=== PATIENT | female | born 1970 | race Caucasian/White ===

== ENCOUNTER → 2018-02-18 | Outpatient (CLI) | payer OTHER, BC ==
[~2018-02-18] MED LIST: DIPH25CA79 PO; EST.1TD TD; FAMO-119 PO; IBP600T1 PO; METH-313 PO; OXYC-12 PO; PRD20T PO; PRD50T PO
--- NOTE | 2018-02-18 11:20 | Diagnostic Imaging Report ---
INDICATION: Injury. Difficulty bearing weight. COMPARISON: None FINDINGS: 3 radiographic views of the right ankle were obtained. There is chronic appearing deformity involving the distal fibula suggestive of old avulsion fracture. There is no gross evidence of acute fracture or dislocation of the right ankle on today's exam. Osseous structures otherwise appear to be intact. Joint spaces are maintained. There may be mild lateral soft tissue swelling. No unexpected radiopaque foreign bodies are identified. IMPRESSION: 1. Probable old avulsion fracture of the distal fibula. 2. No distinct acute fracture or dislocation is seen on today's exam. Dictated by: Dictated on workstation # [id number]
== END ==
LOC: RAD 10:47
PROVIDERS: ATTEND Internal Medicine
DX: S93.401A Sprain of unspecified ligament of right ankle, initial encounter (principal)
CPT/HCPCS: 73610

== ENCOUNTER 2018-03-15 10:30 | Emergency (ER) | payer BC, OTHER ==
[~2018-03-15] VITALS: Ht 167.6 cm; Wt 77.1 kg
[~2018-03-15 10:30] MED LIST changes: -METH-313 PO; -PRD20T PO
[2018-03-15] MEDS ORDERED: METH-313 PO (11:14)
[2018-03-15] MEDS ORDERED: PRD20T PO (11:14)
[2018-03-15] MEDS ORDERED: morphine INJ 10 MG/ML 1ML (SYR OR VIAL) IJ ONE (11:15)
[2018-03-15] MEDS ORDERED: KETOROLAC 60 MG/2 ML VIAL IM ONE (11:15)
--- NOTE | 2018-03-15 11:15 | ED Back Pain ---
General Stated Complaint: LEG LEG PAIN Source of Information: Patient Exam Limitations: No Limitations History of Present Illness Date Seen by Provider: Mar 15, 2018 Time Seen by Provider: 11:09 Initial Comments To ER with reports of left leg pain. She has intermittently over the past 5 months had some left low back pain and pain in the left side of her buttock. Today, the pain became so intense that she has inability to bear weight and the pain radiates all the way down her left leg and she occasionally gets a numb sensation in her left leg. She denies any history of IV drug use, no history of fevers, no history of cancer personally, no loss of sensation to the genitals and no loss of control of bowel or bladder. No falls or trauma. Location: Lumbar Spine Timing/Duration: Getting Worse, Intermittent Severity: Moderate Associated Symptoms: numbness in legs/feet, lower back pain Allergies and Home Medications Allergies Coded Allergies: Sulfa (Sulfonamide Antibiotics) (Verified Allergy, Severe, ANAPHYLAXIS, ) Home Medications No Active Prescriptions or Reported Meds Patient Home Medication List Home Medication List Reviewed: Yes Review of Systems Constitutional: see HPI EENTM: see HPI Respiratory: no symptoms reported Cardiovascular: no symptoms reported Musculoskeletal: see HPI Skin: no symptoms reported Psychiatric/Neurological: No Symptoms Reported Past Lzcihxn-Fyungy-Hutzhb Hx Past Medical History Reproductive Disorders: No Physical Exam Vital Signs Capillary Refill : Height, Weight, BMI Height: 5'6.00" Weight: 180lbs. 0.0oz. 81.358925kr; 29.05 BMI Method: General Appearance: No Apparent Distress, WD/WN, Other (tearful) HEENT: PERRL/EOMI Neck: Full Range of Motion, Normal Inspection Respiratory: No Accessory Muscle Use, No Respiratory Distress Gastrointestinal: Normal Bowel Sounds, Non Tender, Soft Neurologic/Psychiatric: Alert, Oriented x3, No Motor/Sensory Deficits Skin: Normal Color, Warm/Dry Dorsiflex and plantar flex her left foot. Strong dorsalis pedis pulse with warm skin and normal appearance of the leg. Progress/Results/Core Measures Results/Orders My Orders Orders - HECTOR SILVER APRN Morphine Injection (Morphine Injection (03/15/18 11:15) Ketorolac Injection (Toradol Injection) (03/15/18 11:15) Departure Communication (Admissions) She has none of the red flags for low back pain so imaging is not warranted at this time Impression Primary Impression: Lumbar radiculopathy Disposition: HOME, SELF-CARE Condition: Stable Departure-Patient Inst. Decision time for Depature: 11:12 Referrals: [facility] (PCP/Family) Primary Care Physician Patient Instructions: Radiculopathy Add. Discharge Instructions: 1. Call [facility] today to make an appointment to be seen sometime this week. If pain does not improve then an MRI is warranted. Steroids and muscle relaxers as directed. It is best to stay as active as possible, do not just lay around. Scripts Methocarbamol (Robaxin-750) 750 Mg Tablet 750 MG PO Q4H PRN for PAIN-MODERATE TO SEVERE, #30 TAB Prov: HECTOR SILVER APRN 03/15/18 Prednisone (Prednisone) 20 Mg Tab 40 MG PO DAILY, #8 TAB Prov: HCETOR SILVER APRN 03/15/18 Work/School Note: Work Release Form Date Seen in the Emergency Department: Mar 15, 2018 Return to Work: Mar 17, 2018 Other Restrictions Listed Below: No lifting over 10 pounds HECTOR SILVER APRN Mar 15, 2018 11:15
--- OUTSIDE RECORDS SUMMARY | 2018-03-15 11:24 | XMS REPORT ---
Author Author MICHAEL CEDILLO Organization [facility] Address [address] [place] [address] Care Team Providers Care Plant Breeder Scientist Name Role Phone MICHAEL CEDILLO Unavailable PROBLEMS Type Condition ICD9-CM Code [id number] Code Onset Dates Condition Status SNOMED Code Problem Primary insomnia F51.01 Active 4508643 Problem Depression with anxiety F41.8 Active 661362802 Problem Abdominal pain, generalized 789.07 Active 659283042 ALLERGIES Substance Reaction Event Type Date Status Bactrim DS anaphylaxis Drug Allergy Nov, Active ENCOUNTERS Encounter Location Date Diagnosis [facility] [address] [address] Nov, Primary insomnia F51.01 [facility] [address] [address] October, Seasonal allergic rhinitis, unspecified trigger J30.2 [facility] [address] [place] [id number] [place] [address] Jun, Upper respiratory infection, viral J06.9 [facility] [address] [place] [id number] [place] [address] Jun, Influenza J11.1 [facility] [address] [address] Feb, Gastroenteritis and colitis, viral A08.4 [facility] [address] [address] Feb, Dysuria R30.0 [facility] [id number] [place] [id number] Jan, Dental examination Z01.20 [facility] [id number] [place] [address] 17 Nov, 2016 Right ankle injury, initial encounter S99.911A and High ankle sprain of right lower extremity, initial encounter S93.431A [facility] [address] [id number] October, Dental examination Z01.20 [place] [id number] [place] [address] 15 Apr, 2016 Acute non-recurrent frontal sinusitis J01.10 and Elevated blood pressure reading R03.0 [facility] [id number] [place] [address] 16 Jul, 2015 Abdominal pain, generalized 789.07 ; Family history of colon cancer Z80.0 and Depression with anxiety F41.8 [place] [id number] [place] [address] Jul, [facility] [id number] [place] [address] Jun, Skin infection L08.9 ; Sinusitis J32.9 and Tinea corporis B35.4 [facility] [facility] [id number] [place] [address] Jun, Routine adult health maintenance V70.0 [facility] [address] [place] [address] Feb, Routine adult health maintenance V70.0 and Right knee pain 719.46 [facility] [id number] [place] [address]- [address] 14 Feb, 2015 [facility] [id number] [place] [address] Dec, Right knee pain 719.46 [facility] [id number] [place] [address] 14 Sep, 2014 [facility] [id number] [place] [address] Sep, [facility] [place] [facility] [address] [id number] [place] [address] Jan, [facility] [place] [facility] [address] [id number] [place] [address] Jan, [facility] [place] [facility] [address] [id number] [place] [address] Nov, [facility] [place] [facility] [address] [id number] [place] [address] Nov, [facility] [place] [facility] [address] [id number] [place] [address] October, [facility] [place] [facility] [address] [id number] [place] [address] October, [facility] [place] [facility] [address] [id number] [place] [address] Sep, [facility] [place] [facility] [address] [id number] [place] [address] Sep, [facility] [place] [facility] [address] [id number] [place] [address] Jun, [facility] [place] [facility] [address] [id number] [place] [address] Jun, [facility] [place] [facility] [address] [id number] [place] [address] Jun, [facility] [place] [facility] [address] [id number], [place] [address] Feb, [facility] [place] [facility] [address] [id number] [place] [address] Sep, [facility] [place] [facility] [address] [id number] [place] [address] Mar, [facility] [place] [facility] [address] [id number] [place] [address] Mar, [facility] [place] [facility] [id number] [address] October, [facility] [address], [place] [address] Jun, [facility] [address], [place] [address] Jun, [facility] [address] [address] Jun, [facility] [address], [place] [address] Apr, [facility] [id number] [place] [address] Apr, [facility] [address] [place] [address]- [address] Apr, [facility] [id number] [place] [address]- [address] Apr, [facility] [address], [place] [address] Nov, [facility] [address] [address] Apr, IMMUNIZATIONS No Known Immunizations SOCIAL HISTORY Never Assessed REASON FOR VISIT headache, having problems falling sleep x last few years , patient state she is having a lot stress and would like something to help her sleep at night -- nicanor brar PLAN OF CARE Activity Details Follow Up 4 Weeks or prn Reason:insomnia VITAL SIGNS Height 66 in 2017-11-18 Weight 185.0 lbs 2017-11-18 Temperature 98.0 degrees Fahrenheit 2017-11-18 Heart Rate 76 bpm 2017-11-18 Respiratory Rate 18 2017-11-18 BMI 29.86 kg/m2 2017-11-18 Blood pressure systolic 126 mmHg 2017-11-18 Blood pressure diastolic 78 mmHg 2017-11-18 MEDICATIONS Medication Instructions Dosage Frequency Start Date End Date Duration Status Fluticasone Propionate 50 MCG/ACT Nasally Once a day 1 spray in each nostril 24h Jun, 30 day(s) Active Lunesta 1 MG Orally at bedtime as needed 1 tablet Nov, 28 days Active RESULTS No Results PROCEDURES No Known procedures INSTRUCTIONS MEDICATIONS ADMINISTERED No Known Medications MEDICAL (GENERAL) HISTORY Type Description Date Surgical History hysterectomy 01/2011 Surgical History tubal ligation 1999 Hospitalization History Surgery(s) only
--- OUTSIDE RECORDS SUMMARY | 2018-03-15 11:25 | XMS REPORT ---
Author Author MONICA ARISTEO Organization [facility] Address [address] [place] [address] Care Team Providers Care Multicraft Operator Name Role Phone ANDERSONARISTEO Solitario Unavailable PROBLEMS Type Condition ICD9-CM Code VMH07-SP Code Onset Dates Condition Status SNOMED Code Problem Primary insomnia F51.01 Active 9889347 Problem Depression with anxiety F41.8 Active 856124251 Problem Abdominal pain, generalized 789.07 Active 135377147 ALLERGIES Substance Reaction Event Type Date Status Bactrim DS anaphylaxis Drug Allergy Jun, Active ENCOUNTERS Encounter Location Date Diagnosis [facility] [address] [address] Nov, Primary insomnia F51.01 [facility] [address] [address] October, Seasonal allergic rhinitis, unspecified trigger J30.2 [facility] [address] [address] Jun, Upper respiratory infection, viral J06.9 [facility] [address] [place] [address] Jun, Influenza J11.1 [facility] [address] [address] Feb, Gastroenteritis and colitis, viral A08.4 [facility] [address] [address] Feb, Dysuria R30.0 [facility] [address] [id number] Jan, Dental examination Z01.20 [facility] [address] [place] [address] Nov, Right ankle injury, initial encounter S99.911A and High ankle sprain of right lower extremity, initial encounter S93.431A [facility] [address] [id number] October, Dental examination Z01.20 [facility] [id number] [place] [address] Apr, Acute non-recurrent frontal sinusitis J01.10 and Elevated blood pressure reading R03.0 [facility] [id number] [place] [address] 16 Jul, 2015 Abdominal pain, generalized 789.07 ; Family history of colon cancer Z80.0 and Depression with anxiety F41.8 [place] [id number] [place] [address] Jul, [facility] [id number] [place] [address] Jun, Skin infection L08.9 ; Sinusitis J32.9 and Tinea corporis B35.4 [place] [id number] [place] [address]- [address] Jun, Routine adult health maintenance V70.0 [place] [address] [place] [address]- [address] 24 Feb, 2015 Routine adult health maintenance V70.0 and Right knee pain 719.46 [facility] [address] [place] [address]- 58[address] 14 Feb, 2015 [facility] [id number] [place] [address]- [address] Dec, Right knee pain 719.46 [facility] [id number] [place] [address]- 6[address] Sep, [facility] [id number] [place] [address]- [address] Sep, [facility] [place] [facility] [address] [id number] [place] [address] Jan, [facility] [place] [facility] [address] [id number] [place] [address]- [address] Jan, [facility] [place] [facility] [address] [id number] [place] [address] Nov, [facility] [place] [facility] [address] [id number] [place] [address]- 6703 Nov, [facility] [place] [facility] [address] [id number] [place] [address] October, [facility] [place] [facility] [address] [id number] [place] [address] 4[address] October, [facility] [place] [facility] [address] [id number] [place] [address]- 135[address] Sep, [facility] [place] [facility] [address] [id number] [place] [address]- 8[address] Sep, [facility] [place] [facility] [address] [id number] [place] [address]- [address] Jun, [facility] [place] [facility] [address] [id number] [place] [address]- 0[address] Jun, [facility] [place] [facility] [address] [id number] [place] [address]- [address] Jun, [facility] [place] [facility] [address] [id number], [place] [address] Feb, [facility] [place] [facility] [address] [id number] [place] [address]- 39[address] Sep, [facility] [place] [facility] [address] [id number] [place] [address]- 16[address] Mar, [facility] [place] [facility] [address] [id number], [place] [address] Mar, [facility] [place] [facility] [address] [id number], [place] [address] October, [facility] [address], [place] [address] Jun, [facility] [address], [place] [address] Jun, [facility] [address] Jun, [facility] [id number] [place] [address] 142055- 8618 Apr, [facility] [id number] [place] [address]- [address]500 Apr, [facility] [id number] [place] [address] 99523- 5422 Apr, [facility] [id number] [place] [address] 46[address]- 1637 Apr, [facility] [id number] [place] [address] 16[address]- 3363 Nov, [facility] [address] [place] [address]- 9586 Apr, IMMUNIZATIONS No Known Immunizations SOCIAL HISTORY Never Assessed REASON FOR VISIT Cough--tjanssenMA, --thursday at Walk-In she was told she had the flu, no testing done. Grandson had the flu. , --cough has got worse which is producing yellowish phlegm making her chest hurt. She cannot sleep. , --needs work release to go back to work. PLAN OF CARE Activity Details Follow Up prn Reason: VITAL SIGNS Height 66 in 2017-07-06 Weight 186.8 lbs 2017-07-06 Temperature 98.2 degrees Fahrenheit 2017-07-06 Heart Rate 90 bpm 2017-07-06 Respiratory Rate 20 2017-07-06 BMI 30.15 kg/m2 2017-07-06 Blood pressure systolic 120 mmHg 2017-07-06 Blood pressure diastolic 82 mmHg 2017-07-06 MEDICATIONS Medication Instructions Dosage Frequency Start Date End Date Duration Status Cetirizine HCl 10 mg Orally Once a day 1 tablet 24h Jun, Sep, 90 days Active Theraflu Multi Symptom 25 MG Not-Taking Tessalon Perles 100 mg Orally Three times a day 1 capsule as needed 8h Jun, Jul, 14 days Active Fluticasone Propionate 50 MCG/ACT Nasally Once a day 1 spray in each nostril 24h Jun, 30 day(s) Active Paroxetine HCl 20 MG Orally Once a day 1 tablet in the morning 24h Jul, Not-Taking Oxycodone HCl Not-Taking Clotrimazole 1 % Externally Twice a day 1 application to affected area 12h Jun, Not-Taking Ibuprofen 200 MG Orally every 6 hrs 1 tablet with food or milk as needed 6h Not-Taking Amoxicillin Not-Taking RESULTS No Results PROCEDURES No Known procedures INSTRUCTIONS MEDICATIONS ADMINISTERED No Known Medications MEDICAL (GENERAL) HISTORY Type Description Date Surgical History hysterectomy 01/2011 Surgical History tubal ligation 1999 Hospitalization History Surgery(s) only
--- OUTSIDE RECORDS SUMMARY | 2018-03-15 11:25 | XMS REPORT ---
Author Author MONICA ARISTEO Organization [facility] Address [address] [place] [address] Care Team Providers Care Director Community Organization Name Role Phone MONICAISRAARISTEO Unavailable PROBLEMS Type Condition ICD9-CM Code MOS04-SN Code Onset Dates Condition Status SNOMED Code Problem Depression with anxiety F41.8 Active 330164445 Problem Abdominal pain, generalized 789.07 Active 561317235 ALLERGIES Substance Reaction Event Type Date Status Bactrim DS anaphylaxis Drug Allergy Nov, Active ENCOUNTERS Encounter Location Date Diagnosis [facility] [address] [address] Jun, Upper respiratory infection, viral J06.9 [facility] [address] [address] Jun, Influenza J11.1 [facility] [address] [address] Feb, Gastroenteritis and colitis, viral A08.4 [facility] [address] [place] [address]97 Feb, Dysuria R30.0 [facility] [address] [id number] Jan, Dental examination Z01.20 [facility] [id number] [place] [address] Nov, Right ankle injury, initial encounter S99.911A and High ankle sprain of right lower extremity, initial encounter S93.431A [facility] [id number] [place] [id number] October, Dental examination Z01.20 [facility] [id number] [place] [address] Apr, Acute non-recurrent frontal sinusitis J01.10 and Elevated blood pressure reading R03.0 [facility] [id number] [place] [address]8527- 7014 16 Jul, 2015 Abdominal pain, generalized 789.07 ; Family history of colon cancer Z80.0 and Depression with anxiety F41.8 [facility] [id number] [place] [address] 30100- 2813 Jul, [facility] [id number] [place] [address] 47267- 2002 Jun, Skin infection L08.9 ; Sinusitis J32.9 and Tinea corporis B35.4 [place] [id number] [place] [address] 08386- 6003 Jun, Routine adult health maintenance V70.0 [facility] [id number] [place] [address] 80059- 2879 Feb, Routine adult health maintenance V70.0 and Right knee pain 719.46 [facility] [id number] [place] [address] 28784- 5740 Feb, [facility] [id number] [place] [address] 35427- 1788 Dec, Right knee pain 719.46 [facility] [id number] [place] [address] 33616- 0002 Sep, [facility] [id number] [place] [address] 78740- 1149 Sep, [facility] [id number] [place] [address] 51809- 1254 Jan, [facility] [id number] [place] [address] 30137- 3572 Jan, [facility] [id number] [place] [address] 83871- 8885 Nov, [facility] [place] [facility] [address] [id number] [place] [address]- 8916 Nov, [facility] [place] [facility] [address] [id number] [place] [address] 3118 October, [facility] [place] [facility] [address] [id number] [place] [address]- 0672 October, [facility] [place] [facility] [address] [id number] [place] [address]- 0378 Sep, [facility] [place] [facility] [address] [id number] [place] [address]- 8121 Sep, [facility] [place] [facility] [address] [id number] [place] [address]- 2583 Jun, [facility] [place] [facility] [address] [id number] [place] [address]- 0438 Jun, [facility] [place] [facility] [address] [id number] [place] [address]- 3019 Jun, [facility] [place] [facility] [address] [id number] [place] [address]- 5859 Feb, [facility] [place] [facility] [address] [id number] [place] [address]- 4452 Sep, [facility] [place] [facility] [address] [id number] [place] [address]- 7853 Mar, [facility] [place] [facility] [address] [id number] [address] 95[address] Mar, [facility] [place] [facility] [address] [id number] [place] [address]- 4535 October, [facility] [place] [facility] [address] [id number] [place] [address]- 6616 Jun, [facility] [place] [facility] [address] [id number] [place] [address]- 7089 Jun, [facility] [place] [facility] [address] [facility] [id number] [place] [address]- 12[address] Jun, [facility] [address] [id number] [address] 79[address] Apr, [facility] [address] [id number] [address] 9248 Apr, [facility] [address] [id number] [address] 6449 Apr, [facility] [address] [id number] [address] 1679 Apr, [facility] [address] [id number] [address] 65[address] Nov, [facility] [address] [id number], [place] [address] 8989 Apr, IMMUNIZATIONS No Known Immunizations SOCIAL HISTORY Never Assessed REASON FOR VISIT hurt ankle- twisted at work yesterday JStrasserRN PLAN OF CARE Activity Details Follow Up prn Reason: VITAL SIGNS Height 66 in 2016-11-29 Weight 193 lbs 2016-11-29 Temperature 97.6 degrees Fahrenheit 2016-11-29 Heart Rate 80 bpm 2016-11-29 Respiratory Rate 18 2016-11-29 BMI 31.15 kg/m2 2016-11-29 Blood pressure systolic 122 mmHg 2016-11-29 Blood pressure diastolic 74 mmHg 2016-11-29 MEDICATIONS Medication Instructions Dosage Frequency Start Date End Date Duration Status Ibuprofen 200 MG Orally every 6 hrs 1 tablet with food or milk as needed 6h Active RESULTS Name Result Date Reference Range Xray : Ankle, Right 3 views (IN HOUSE) 2016-11-29 PROCEDURES Procedure Date Ordered Result Body Site X-RAY EXAM OF ANKLE November 29, 2016 INSTRUCTIONS MEDICATIONS ADMINISTERED No Known Medications MEDICAL (GENERAL) HISTORY Type Description Date Surgical History hysterectomy 01/2011 Surgical History tubal ligation 1999 Hospitalization History Surgery(s) only
--- OUTSIDE RECORDS SUMMARY | 2018-03-15 11:25 | XMS REPORT ---
Author Author MICHAEL CEDILLO Organization [employer] Address Unknown Phone Unavailable Care Team Providers Care Motion Picture Camera Operator Name Role Phone MICHAEL CEDILLO CP Unavailable Allergies No Known Allergies Problems Problem Type Condition Code Onset Dates Condition Status Problem Abdominal pain, unspecified site 789.00 Active Problem Disturbance of skin sensation 782.0 Active Problem Headache 784.0 Active Problem Right knee pain 719.46 Active Problem Family history of diabetes mellitus V18.0 Active Problem Routine adult health maintenance V70.0 Active Problem Other malaise and fatigue 780.79 Active Problem Abdominal pain, generalized 789.07 Active Problem Polyuria 788.42 Active Problem Palpitations 785.1 Active Problem Diarrhea 787.91 Active Problem Nausea with vomiting 787.01 Active Problem Insomnia, unspecified 780.52 Active Problem Unspecified menopausal and postmenopausal disorder 627.9 Active Problem Migraine without aura, without mention of intractable migraine without mention of status migrainosus 346.10 Active Problem Carpal tunnel syndrome 354.0 Active Problem Sprain and strain of tibiofibular (ligament) 845.03 Active Problem Nausea alone 787.02 Active Problem Intestinal infection due to other organism, NEC 008.8 Active Problem Hematuria, unspecified 599.70 Active Medications No Known Medications Results No Known Results Summary Purpose [employer] Submission
--- OUTSIDE RECORDS SUMMARY | 2018-03-15 11:25 | XMS REPORT ---
Author Author ANNETTA LANGLEY Organization [facility] Address [address] [place] [address] Care Team Providers Care Sleeve Sewer Name Role Phone ANNETTA LANGLEY Unavailable PROBLEMS Type Condition ICD9-CM Code XBY85-QF Code Onset Dates Condition Status SNOMED Code Problem Depression with anxiety F41.8 Active 341111167 Problem Abdominal pain, generalized 789.07 Active 753942039 ALLERGIES Substance Reaction Event Type Date Status Bactrim DS anaphylaxis Drug Allergy Feb, Active ENCOUNTERS Encounter Location Date Diagnosis [facility] [address] [address] October, Seasonal allergic rhinitis, unspecified trigger J30.2 [facility] [id number] [place] [address]162- 7914 Jun, Upper respiratory infection, viral J06.9 [facility] [address] [address] Jun, Influenza J11.1 [facility] [address] [address] Feb, Gastroenteritis and colitis, viral A08.4 [facility] [address] [address] Feb, Dysuria R30.0 [facility] [address] [id number] Jan, Dental examination Z01.20 [facility] [address] [address] 17 Nov, 2016 Right ankle injury, initial encounter S99.911A and High ankle sprain of right lower extremity, initial encounter S93.431A [facility] [address] [id number] [id number] October, Dental examination Z01.20 [place] [id number] [place] [address]15- 3851 Apr, Acute non-recurrent frontal sinusitis J01.10 and Elevated blood pressure reading R03.0 [place] [id number] [place] [address] 36058- 3698 16 Jul, 2015 Abdominal pain, generalized 789.07 ; Family history of colon cancer Z80.0 and Depression with anxiety F41.8 [place] [id number] [place] [address] 67788- 1049 Jul, [facility] [id number] [place] [address] 08970- 0264 Jun, Skin infection L08.9 ; Sinusitis J32.9 and Tinea corporis B35.4 [place] [id number] [place] [address] 34636- 7600 Jun, Routine adult health maintenance V70.0 [place] [id number] [place] [address] 55498- 7680 24 Feb, 2015 Routine adult health maintenance V70.0 and Right knee pain 719.46 [facility] [id number] [place] [address] 48189- 1182 Feb, [facility] [id number] [place] [address] 99606- 3946 Dec, Right knee pain 719.46 [facility] [id number] [place] [address] 06917- 6661 Sep, [facility] [id number] [place] [address] 82293- 4609 Sep, [facility] [id number] [place] [address] 80462- 0583 Jan, [facility] [address] [place] [address]- 6229 Jan, [facility] [place] [facility] [address] [id number] [place] [address]- 2028 Nov, [facility] [place] [facility] [address] [id number] [place] [address]- 0903 Nov, [facility] [place] [facility] [address] [id number] [place] [address]- 4677 October, [facility] [place] [facility] [address] [id number] [place] [address]- 3741 October, [facility] [place] [facility] [address] [id number] [place] [address]- 5373 Sep, [facility] [place] [facility] [address] [id number] [place] [address]- 8334 Sep, [facility] [place] [facility] [address] [id number] [place] [address]- 6397 Jun, [facility] [place] [facility] [address] [id number] [place] [address]- 8499 Jun, [facility] [place] [facility] [address] [id number] [place] [address]- 2136 Jun, [facility] [place] [facility] [address] [id number] [place] [address]- 6469 Feb, [facility] [place] [facility] [address] [id number] [place] [address]- 0690 Sep, [facility] [place] [facility] [address] [id number] [place] [address]- 7770 Mar, [facility] [place] [facility] [address] [id number] [place] [address]- 4956 Mar, [facility] [place] [facility] [address] [id number] [place] [address] [address] October, [facility] [place] [facility] [address] [id number] [place] [address]- 6649 Jun, [facility] [address] [id number] [address]- 9410 Jun, [facility] [address] [address]- 0673 Jun, [facility] [address] [address]- 7145 Apr, [facility] [id number] [place] [address] 754965- 9096 Apr, [facility] [id number] [place] [address] 542077- 9993 Apr, [facility] [id number] [place] [address] 687733- 0658 Apr, [facility] [address] [place] [address] 90509- 4076 Nov, [facility] [address] [address]- 4[address] Apr, IMMUNIZATIONS No Known Immunizations SOCIAL HISTORY Never Assessed REASON FOR VISIT Urinary frequency, burning with urination started a couple weeks ago JStraWilliams PLAN OF CARE Activity Details Follow Up prn Reason: VITAL SIGNS Height 66 in 2017-03-03 Weight 193.8 lbs 2017-03-03 Temperature 97.9 degrees Fahrenheit 2017-03-03 Heart Rate 88 bpm 2017-03-03 Respiratory Rate 18 2017-03-03 BMI 31.28 kg/m2 2017-03-03 Blood pressure systolic 132 mmHg 2017-03-03 Blood pressure diastolic 80 mmHg 2017-03-03 MEDICATIONS No Known Medications RESULTS Name Result Date Reference Range UA LONG DIP (IN HOUSE) 2017-03-03 Lot # [id number] Exp date 2018-02-12 Clarity clear Color yellow Odor none GLU negative NEERAJ negative KET negative SG >=1.030 BLO negative pH 6.0 Protein negative URO 0.2 NIT negative MARIE negative Lot # [id number] Exp date September 2017 PROCEDURES Procedure Date Ordered Result Body Site URINALYSIS, AUTO, W/O SCOPE Mar 03, 2017 INSTRUCTIONS MEDICATIONS ADMINISTERED No Known Medications MEDICAL (GENERAL) HISTORY Type Description Date Surgical History hysterectomy 01/2011 Surgical History tubal ligation 2000 Hospitalization History Surgery(s) only
--- OUTSIDE RECORDS SUMMARY | 2018-03-15 11:25 | XMS REPORT ---
Author Author ALEX KHALIL [facility] Address [address] [place] [address] Care Team Providers Care Retail Supervisor Name Role Phone ALEX KHALIL Unavailable PROBLEMS Type Condition ICD9-CM Code ROT33-OR Code Onset Dates Condition Status SNOMED Code Problem Primary insomnia F51.01 Active 8490927 Problem Depression with anxiety F41.8 Active 265380471 Problem Abdominal pain, generalized 789.07 Active 128394771 ALLERGIES Substance Reaction Event Type Date Status Bactrim DS anaphylaxis Drug Allergy October, Active ENCOUNTERS Encounter Location Date Diagnosis [facility] [address] [address] Nov, Primary insomnia F51.01 [facility] [address] [address] October, Seasonal allergic rhinitis, unspecified trigger J30.2 [facility] [address] [address]- [address] Jun, Upper respiratory infection, viral J06.9 [facility] [address] [place] [address]34 -1017 Jun, Influenza J11.1 [facility] [address] [address] Feb, Gastroenteritis and colitis, viral A08.4 [facility] [address] [place] [address] -[address]003 Feb, Dysuria R30.0 [facility] [address] [id number] Jan, Dental examination Z01.20 [facility] [address], [place] [address] 17 Nov, 2016 Right ankle injury, initial encounter S99.911A and High ankle sprain of right lower extremity, initial encounter S93.431A [facility] [address] [id number] October, Dental examination Z01.20 [facility] [id number] [place] [address] 22973- 2382 Apr, Acute non-recurrent frontal sinusitis J01.10 and Elevated blood pressure reading R03.0 [facility] [id number] [place] [address] 24775- 7847 16 Jul, 2015 Abdominal pain, generalized 789.07 ; Family history of colon cancer Z80.0 and Depression with anxiety F41.8 [facility] [id number] [place] [address] 77805- 7552 Jul, [facility] [id number] [place] [address] 96642- 1198 Jun, Skin infection L08.9 ; Sinusitis J32.9 and Tinea corporis B35.4 [place] [id number] [place] [address] 34402- 2221 08 Jun, 2015 Routine adult health maintenance V70.0 [facility] [address] [place] [address] 50010- 4867 24 Feb, 2015 Routine adult health maintenance V70.0 and Right knee pain 719.46 [facility] [address] [place] [address] 56513- 2017 Feb, [facility] [id number] [place] [address] 61284- 6389 Dec, Right knee pain 719.46 [facility] [id number] [place] [address] 17678- 3052 Sep, [facility] [id number] [place] [address] 08105- 7456 Sep, [facility] [place] [facility] [address] [id number] [place] [address]- 3711 Jan, [facility] [place] [facility] [address] [id number] [place] [address]- 6822 Jan, [facility] [place] [facility] [address] [id number] [place] [address]- 1815 Nov, [facility] [place] [facility] [address] [id number] [place] [address]- 4173 Nov, [facility] [place] [facility] [address] [id number] [place] [address]- 2109 October, [facility] [place] [facility] [address] [id number] [place] [address]- 9614 October, [facility] [place] [facility] [address] [id number] [place] [address]- 9968 Sep, [facility] [place] [facility] [address] [id number] [place] [address]- 3979 Sep, [facility] [place] [facility] [address] [id number] [place] [address]- 4972 Jun, [facility] [place] [facility] [address] [id number] [place] [address]- 9384 Jun, [facility] [place] [facility] [address] [id number] [place] [address]- 0229 Jun, [facility] [place] [facility] [address] [id number] [place] [address]- 2212 Feb, [facility] [place] [facility] [address] [id number] [place] [address]- 1517 Sep, [facility] [place] [facility] [address] [id number] [place] [address]- 5156 Mar, [facility] [place] [facility] [address] [id number] [place] [address]- 1765 Mar, [facility] [place] [facility] [id number] [address] 89[address] October, [facility] [address], [place] [address]- 0439 Jun, [facility] [address], [place] [address]- 8484 Jun, [facility] [address], [place] [address]- 4303 Jun, [facility] [address], [place] [address]- 6817 Apr, [facility] [id number] [place] [address] 80698- 0969 Apr, [facility] [id number], [place] [address]- 0029 Apr, [facility] [address], [place] [address]- 6648 Apr, [facility] [address], [place] [address]- 6163 Nov, [facility] [address], [place] [address]- 9330 Apr, IMMUNIZATIONS No Known Immunizations SOCIAL HISTORY Never Assessed REASON FOR VISIT Sneezing, runny nose, headache, scratchy throat, cough started Thurs JStrasserRN PLAN OF CARE Activity Details Follow Up prn Reason: VITAL SIGNS Height 66 in 2017-10-13 Weight 184.6 lbs 2017-10-13 Temperature 99.0 degrees Fahrenheit 2017-10-13 Heart Rate 80 bpm 2017-10-13 Respiratory Rate 20 2017-10-13 BMI 29.79 kg/m2 2017-10-13 Blood pressure systolic 140 mmHg 2017-10-13 Blood pressure diastolic 98 mmHg 2017-10-13 MEDICATIONS Medication Instructions Dosage Frequency Start Date End Date Duration Status Fluticasone Propionate 50 MCG/ACT Nasally Once a day 1 spray in each nostril 24h Jun, 30 day(s) Active Benadryl Allergy 25 MG Orally every 8 hrs 1 tablet as needed 8h Active Theraflu Multi Symptom 25 MG Not-Taking Amoxicillin Not-Taking Paroxetine HCl 20 MG Orally Once a day 1 tablet in the morning 24h 16 Jul, 2015 Not-Taking Clotrimazole 1 % Externally Twice a day 1 application to affected area 12h 28 Jun, 2015 Not-Taking Ibuprofen 200 MG Orally every 6 hrs 1 tablet with food or milk as needed 6h Not-Taking Oxycodone HCl Not-Taking RESULTS No Results PROCEDURES No Known procedures INSTRUCTIONS MEDICATIONS ADMINISTERED No Known Medications MEDICAL (GENERAL) HISTORY Type Description Date Surgical History hysterectomy 01/2011 Surgical History tubal ligation 1999 Hospitalization History Surgery(s) only
--- OUTSIDE RECORDS SUMMARY | 2018-03-15 11:25 | XMS REPORT ---
Author Author LISA ROLAND Organization [facility] Address [address] [place] [address] Care Team Providers Care Process Controls Technician Name Role Phone LISA ROLAND Unavailable PROBLEMS Type Condition ICD9-CM Code PQX88-AO Code Onset Dates Condition Status SNOMED Code Problem Primary insomnia F51.01 Active 4752381 Problem Depression with anxiety F41.8 Active 724980158 Problem Abdominal pain, generalized 789.07 Active 690486022 ALLERGIES Substance Reaction Event Type Date Status Bactrim DS anaphylaxis Drug Allergy Jun, Active ENCOUNTERS Encounter Location Date Diagnosis [facility] [address] [address] Nov, Primary insomnia F51.01 [facility] [address] [address] October, Seasonal allergic rhinitis, unspecified trigger J30.2 [facility] [address] [address] Jun, Upper respiratory infection, viral J06.9 [facility] [address] [address] Jun, Influenza J11.1 [facility] [address] [address] Feb, Gastroenteritis and colitis, viral A08.4 [facility] [address] [address] Feb, Dysuria R30.0 [facility] [address] [id number] Jan, Dental examination Z01.20 [facility] [address] [place] [address] Nov, Right ankle injury, initial encounter S99.911A and High ankle sprain of right lower extremity, initial encounter S93.431A [facility] [address] [id number] October, Dental examination Z01.20 [facility] [id number] [place] [address] Apr, Acute non-recurrent frontal sinusitis J01.10 and Elevated blood pressure reading R03.0 [facility] [id number] [place] [address] 16 Jul, 2015 Abdominal pain, generalized 789.07 ; Family history of colon cancer Z80.0 and Depression with anxiety F41.8 [place] [address] [place] [address] Jul, [facility] [id number] [place] [address] Jun, Skin infection L08.9 ; Sinusitis J32.9 and Tinea corporis B35.4 [place] [id number] [place] [address] Jun, Routine adult health maintenance V70.0 [place] [id number] [place] [address] 24 Feb, 2015 Routine adult health maintenance V70.0 and Right knee pain 719.46 [facility] [address] [place] [address] 14 Feb, 2015 [facility] [id number] [place] [address] Dec, Right knee pain 719.46 [facility] [address] [place] [address] Sep, [facility] [id number] [place] [address] Sep, [facility] [place] [facility] [address] [id number] [place] [address] Jan, [facility] [place] [facility] [address] [id number] [place] [address] Jan, [facility] [place] [facility] [address] [id number] [place] [address] Nov, [facility] [place] [facility] [address] [id number] [place] [address] Nov, [facility] [place] [facility] [address] [id number] [place] [address] October, [facility] [place] [facility] [address] [id number] [place] [address] October, [facility] [place] [facility] [address] [id number] [place] [address] Sep, [facility] [place] [facility] [address] [id number] [place] [address] Sep, [facility] [place] [facility] [address] [id number] [place] [address] Jun, [facility] [place] [facility] [address] [id number] [place] [address] Jun, [facility] [place] [facility] [address] [id number] [place] [address] Jun, [facility] [place] [facility] [address] [id number] [address] Feb, [facility] [place] [facility] [address] [id number] [place] [address] Sep, [facility] [place] [facility] [address] [id number] [place] [address] Mar, [facility] [place] [facility] [address] [id number] [place] [address] Mar, [facility] [place] [facility] [address] [id number] [address] October, [facility] [address] [address] Jun, [facility] [address] [address] Jun, [facility] [address] [address] Jun, [facility] [address] [place] [address] Apr, [facility] [address] [place] [address] Apr, [facility] [address] [place] [address] Apr, [facility] [address] [address] Apr, [facility] [address] [address] Nov, [facility] [address] [address] Apr, IMMUNIZATIONS No Known Immunizations SOCIAL HISTORY Never Assessed REASON FOR VISIT Cough, body aches, chills, headache started Fri Justyna Burgos has Influenza A PLAN OF CARE Activity Details Follow Up prn Reason: VITAL SIGNS Height 66 in 2017-07-03 Weight 191.4 lbs 2017-07-03 Temperature 97.9 degrees Fahrenheit 2017-07-03 Heart Rate 88 bpm 2017-07-03 Respiratory Rate 20 2017-07-03 BMI 30.89 kg/m2 2017-07-03 Blood pressure systolic 130 mmHg 2017-07-03 Blood pressure diastolic 82 mmHg 2017-07-03 MEDICATIONS Medication Instructions Dosage Frequency Start Date End Date Duration Status Theraflu Multi Symptom 25 MG Active Paroxetine HCl 20 MG Orally Once a day 1 tablet in the morning 24h Jul, Not-Taking Amoxicillin Not-Taking Ibuprofen 200 MG Orally every 6 hrs 1 tablet with food or milk as needed 6h Not-Taking Oxycodone HCl Not-Taking Clotrimazole 1 % Externally Twice a day 1 application to affected area 12h 28 Jun, 2015 Not-Taking RESULTS No Results PROCEDURES No Known procedures INSTRUCTIONS MEDICATIONS ADMINISTERED No Known Medications MEDICAL (GENERAL) HISTORY Type Description Date Surgical History hysterectomy 01/2011 Surgical History tubal ligation 1999 Hospitalization History Surgery(s) only
--- OUTSIDE RECORDS SUMMARY | 2018-03-15 11:25 | XMS REPORT ---
Author Author ANDERSONARISTEO Solitario Organization [facility] Address [address] [place] [address] Care Team Providers Care Boiler Coverer Helper Name Role Phone ANDERSONARISTEO Solitario Unavailable PROBLEMS Type Condition ICD9-CM Code IJS94-SN Code Onset Dates Condition Status SNOMED Code Problem Depression with anxiety F41.8 Active 560464805 Problem Abdominal pain, generalized 789.07 Active 902662155 Assessment Acute non-recurrent frontal sinusitis J01.10 Apr, Active 45470501 Assessment Elevated blood pressure reading R03.0 Apr, Active 06718015 ALLERGIES Substance Reaction Event Type Date Status Bactrim DS anaphylaxis Drug Allergy Apr, Active SOCIAL HISTORY No smoking Hx information available PLAN OF CARE VITAL SIGNS Height 66 in 2016-04-29 Weight 194 lbs 2016-04-29 Heart Rate 70 bpm 2016-04-29 Respiratory Rate 16 2016-04-29 BMI 31.31 kg/m2 2016-04-29 Blood pressure systolic 144 mmHg 2016-04-29 Blood pressure diastolic 90 mmHg 2016-04-29 MEDICATIONS Medication Instructions Dosage Frequency Start Date End Date Duration Status Azithromycin 250 MG Orally Once a day 2 tablets on the first day, then 1 tablet daily for 4 days 24h Apr, Apr, 5 day(s) Active RESULTS No Results PROCEDURES Procedure Date Ordered Related Diagnosis Body Site Office Visit, Est Pt., Level 3 Apr 29, 2016 IMMUNIZATIONS No Known Immunizations
--- OUTSIDE RECORDS SUMMARY | 2018-03-15 11:25 | XMS REPORT ---
Author Author AARON ANGUIANO [facility] e[employer] Address Unknown Phone Unavailable Care Team Providers Care Delivery Department Supervisor Name Role Phone AARON ANGUIANO CP Unavailable Allergies No Known Allergies Problems Problem Type Condition Code Onset Dates Condition Status Problem Abdominal pain, unspecified site 789.00 Active Problem Disturbance of skin sensation 782.0 Active Problem Headache 784.0 Active Problem Right knee pain 719.46 Active Assessment Routine adult health maintenance V70.0 Active Problem Family history of diabetes mellitus [...] unspecified 599.70 Active Medications No Known Medications Procedures Procedure Coding System Code Date COMPLETE CBC W/AUTO DIFF WBC CPT-4 70675 Jun 22, 2015 LIPID PANEL CPT-4 19531 Jun 22, 2015 ASSAY THYROID STIM HORMONE CPT-4 99512 Jun 22, 2015 VENIPUNCT, ROUTINE* CPT-4 09515 Jun 22, 2015 COMPREHEN METABOLIC PANEL CPT-4 41680 Jun 22, 2015 Results Name Result Date Reference Range Unit Abnormality Flag ROUTINE VENIPUNCTURE Summary Purpose eClinicalWorks Submission
--- OUTSIDE RECORDS SUMMARY | 2018-03-15 11:26 | XMS REPORT | Continuity of Care Document ---
Author Author [facility] Address Unknown Phone Unavailable Allergies Active Description Code Type Severity Reaction Onset Reported/Identified Relationship to Patient Clinical Status Yes No Known Drug Allergies [id number] Drug Allergy Unknown N/A 01/14/2011 Yes Sulfa (Sulfonamide Antibiotics) [id number] Drug Allergy Severe ANAPHYLAXIS 08/31/2015 Medications There is no data. Problems Date Dx Coded Attending Type Code Diagnosis Diagnosed By 07/05/2009 625.9 pelvic pain 07/05/2009 625.9 pelvic pain 07/05/2009 MISTI HAWLEY APRN 625.9 pelvic pain 07/05/2009 ELSY HELLER MD 625.9 pelvic pain 07/05/2009 ANTONIO COWAN DO 625.9 pelvic pain 07/05/2009 LUCI NAVARRO APRN 625.9 pelvic pain 07/05/2009 RAY ALANIZ APRN 625.9 pelvic pain 09/28/2009 V25.49 Gynecologic Service Prescrip Of Contracept Agent - Repeat Rx 09/28/2009 V25.49 Gynecologic Service Prescrip Of Contracept Agent - Repeat Rx 09/28/2009 MISTI HAWLEY APRN V25.49 Gynecologic Service Prescrip Of Contracept Agent - Repeat Rx 09/28/2009 ELSY HELLER MD V25.49 Gynecologic Service Prescrip Of Contracept Agent - Repeat Rx 09/28/2009 ANTONIO COWAN DO V25.49 Gynecologic Service Prescrip Of Contracept Agent - Repeat Rx 09/28/2009 LUCI NAVARRO APRN V25.49 Gynecologic Service Prescrip Of Contracept Agent - Repeat Rx 09/28/2009 RAY ALANIZ APRN V25.49 Gynecologic Service Prescrip Of Contracept Agent - Repeat Rx 06/21/[address] GRADER OPERATOR EXAM, ROUTINE 06/21/[address] GRADER OPERATOR EXAM, ROUTINE 06/21/2010 MISTI HAWLEY APRN V72.31 ROAD GRADER OPERATOR EXAM, ROUTINE 06/21/2010 ELSY HELLER MD V72.31 ROAD GRADER OPERATOR EXAM, ROUTINE 06/21/2010 ANTONIO COWAN DO K V72.[address] ROAD GRADER OPERATOR EXAM, ROUTINE 06/21/2010 LUCI NAVARRO APRN R V72.31 ROAD GRADER OPERATOR EXAM, ROUTINE 06/21/2010 RAY ALANIZ APRN V72.31 ROAD GRADER OPERATOR EXAM, ROUTINE 11/19/2010 305.1 NONDEPENDENT TOBACCO USE DISORDER 11/19/2010 617.9 ENDOMETRIOSIS SITE UNSPECIFIED 11/19/2010 625.0 Dyspareunia 11/19/2010 625.3 Dysmenorrhea 11/19/2010 305.1 NONDEPENDENT TOBACCO USE DISORDER 11/19/2010 617.9 ENDOMETRIOSIS SITE UNSPECIFIED 11/19/2010 625.0 Dyspareunia 11/19/2010 625.3 Dysmenorrhea 11/19/2010 MISTI HAWLEY APRN S 305.1 NONDEPENDENT TOBACCO USE DISORDER 11/19/2010 MISTI HAWLEY APRN S 617.9 ENDOMETRIOSIS SITE UNSPECIFIED 11/19/2010 MISTI HAWLEY APRN S 625.0 Dyspareunia 11/19/2010 MILTON HAWLEY APRNA S 625.3 Dysmenorrhea 11/19/2010 ELSY HELLER MD 305.1 NONDEPENDENT TOBACCO USE DISORDER 11/19/2010 ELSY HELLER MD 617.9 ENDOMETRIOSIS SITE UNSPECIFIED 11/19/2010 ELSY HELLER MD 625.0 Dyspareunia 11/19/2010 ELSY HELLER MD 625.3 Dysmenorrhea 11/19/2010 COWAN DO ANTONIO K 305.1 NONDEPENDENT TOBACCO USE DISORDER 11/19/2010 COWAN DO ANTONIO K 617.9 ENDOMETRIOSIS SITE UNSPECIFIED 11/19/2010 COWAN DO ANTONIO K 625.0 Dyspareunia 11/19/2010 COWAN DO ANTONIO K 625.3 Dysmenorrhea 11/19/2010 LUCI NAVARRO APRN R 305.1 NONDEPENDENT TOBACCO USE DISORDER 11/19/2010 LUCI NAVARRO APRN R 617.9 ENDOMETRIOSIS SITE UNSPECIFIED 11/19/2010 HALLEY NAVARRO APRNINA R 625.0 Dyspareunia 11/19/2010 HALLEY NAVARRO APRNINA R 625.3 Dysmenorrhea 11/19/2010 JASPAL ALANIZ APRNIA R 305.1 NONDEPENDENT TOBACCO USE DISORDER 11/19/2010 JASPAL ALANIZ APRNIA R 617.9 ENDOMETRIOSIS SITE UNSPECIFIED 11/19/2010 MAYRA ALANIZ APRNRICIA R 625.0 Dyspareunia 11/19/2010 MAYRA ALANIZ APRNRICIA R 625.3 Dysmenorrhea 12/02/2010 995.3 Allergy Unspecified Not Elsewhere Classified 12/02/2010 995.3 Allergy Unspecified Not Elsewhere Classified 12/02/2010 MISTI HAWLEY APRN S 995.3 Allergy Unspecified Not Elsewhere Classified 12/02/2010 ELSY HELLER MD 995.3 Allergy Unspecified Not Elsewhere Classified 12/02/2010 ANTONIO COWAN DO 995.3 Allergy Unspecified Not Elsewhere Classified 12/02/2010 MELANIE TERRELL LUCI R 995.3 Allergy Unspecified Not Elsewhere Classified 12/02/2010 RAY ALANIZ APRN R 995.3 Allergy Unspecified Not Elsewhere Classified 01/15/2011 Ot 305.1 01/15/2011 Ot 620.8 01/15/2011 Ot 621.8 01/15/2011 Ot 625.9 05/01/2011 729.2 NEURALGIA NEURITIS AND RADICULITIS UNSPECIFIED 05/01/2011 729.2 NEURALGIA NEURITIS AND RADICULITIS UNSPECIFIED 05/01/2011 MISTI HAWLEY APRN S 729.2 NEURALGIA NEURITIS AND RADICULITIS UNSPECIFIED 05/01/2011 ELSY HELLER MD 729.2 NEURALGIA NEURITIS AND RADICULITIS UNSPECIFIED 05/01/2011 ANTONIO COWAN DO 729.2 NEURALGIA NEURITIS AND RADICULITIS UNSPECIFIED 05/01/2011 MELANIE TERRELL LUCI R 729.2 NEURALGIA NEURITIS AND RADICULITIS UNSPECIFIED 05/01/2011 RAY ALANIZ APRN R 729.2 NEURALGIA NEURITIS AND RADICULITIS UNSPECIFIED 05/12/2011 788.1 DYSURIA 05/12/2011 788.1 DYSURIA 05/12/2011 MISTI HAWLEY APRN S 788.1 DYSURIA 05/12/2011 ELSY HELLER MD 788.1 DYSURIA 05/12/2011 ANTONIO COWAN DO 788.1 DYSURIA 05/12/2011 HALLEY NAVARRO APRNINA R 788.1 DYSURIA 05/12/2011 RAY ALANIZ APRN R 788.1 DYSURIA 07/07/2011 845.03 Sprain Lat Ankle 07/07/2011 845.03 Sprain Lat Ankle 07/07/2011 MISTI HAWLEY APRN S 845.03 Sprain Lat Ankle 07/07/2011 ELSY HELLER MD 845.03 Sprain Lat Ankle 07/07/2011 ANTONIO COWAN DO K 845.03 Sprain Lat Ankle 07/07/2011 LUCI NAVARRO APRN R 845.03 Sprain Lat Ankle 07/07/2011 RAY ALANIZ APRN R 845.03 Sprain Lat Ankle 10/29/2011 354.0 CARPAL TUNNEL SYNDROME 10/29/2011 354.0 CARPAL TUNNEL SYNDROME 10/29/2011 MISTI HAWLEY APRN S 354.0 CARPAL TUNNEL SYNDROME 10/29/2011 ELSY HELLER MD 354.0 CARPAL TUNNEL SYNDROME 10/29/2011 ANTONIO COWAN DO 354.0 CARPAL TUNNEL SYNDROME 10/29/2011 LUCI NAVARRO APRN R 354.0 CARPAL TUNNEL SYNDROME 10/29/2011 RYA ALANIZ APRN R 354.0 CARPAL TUNNEL SYNDROME 03/26/2012 599.70 HEMATURIA UNSPECIFIED 03/26/2012 787.02 NAUSEA ALONE 03/26/2012 789.00 ABDOMINAL PAIN UNSPECIFIED SITE 03/26/2012 599.70 HEMATURIA UNSPECIFIED 03/26/2012 787.02 NAUSEA ALONE 03/26/2012 789.00 ABDOMINAL PAIN UNSPECIFIED SITE 03/26/2012 MISTI HAWLEY APRN S 599.70 HEMATURIA UNSPECIFIED 03/26/2012 MISTI HAWLEY APRN S 787.02 NAUSEA ALONE 03/26/2012 MISTI HAWLEY APRN S 789.00 ABDOMINAL PAIN UNSPECIFIED SITE 03/26/2012 ELSY HELLER MD 599.70 HEMATURIA UNSPECIFIED 03/26/2012 ELSY HELLER MD 787.02 NAUSEA ALONE 03/26/2012 ELSY HELLER MD 789.00 ABDOMINAL PAIN UNSPECIFIED SITE 03/26/2012 COWAN DO, ANTONIO K 599.70 HEMATURIA UNSPECIFIED 03/26/2012 COWAN DO, ANTONIO K 787.02 NAUSEA ALONE 03/26/2012 COWAN DO, ANTONIO K 789.00 ABDOMINAL PAIN UNSPECIFIED SITE 03/26/2012 MELANIE LACQUER MAKER, LUCI R 599.70 HEMATURIA UNSPECIFIED 03/26/2012 MELANIE LACQUER MAKER, LUCI R 787.02 NAUSEA ALONE 03/26/2012 MELANIE LACQUER MAKER, LUCI R 789.00 ABDOMINAL PAIN UNSPECIFIED SITE 03/26/2012 ALANIZ LACQUER MAKER, RAY R 599.70 HEMATURIA UNSPECIFIED 03/26/2012 ALANIZ LACQUER MAKER, RAY R 787.02 NAUSEA ALONE 03/26/2012 ALANIZ LACQUER MAKER, RAY R 789.00 ABDOMINAL PAIN UNSPECIFIED SITE 10/04/2012 346.10 MIGRAINE WITHOUT AURA WITHOUT MENTION OF INTRACTABLE MIGRAINE WITHOUT MENTION OF STATUS MIGRAINOSUS 10/04/2012 346.10 MIGRAINE WITHOUT AURA WITHOUT MENTION OF INTRACTABLE MIGRAINE WITHOUT MENTION OF STATUS MIGRAINOSUS 10/04/2012 MISTI HAWLEY APRN S 346.10 MIGRAINE WITHOUT AURA WITHOUT MENTION OF INTRACTABLE MIGRAINE WITHOUT MENTION OF STATUS MIGRAINOSUS 10/04/2012 ELSY HELLER MD 346.10 MIGRAINE WITHOUT AURA WITHOUT MENTION OF INTRACTABLE MIGRAINE WITHOUT MENTION OF STATUS MIGRAINOSUS 10/04/2012 KRISTINE COWAN DOA K 346.10 MIGRAINE WITHOUT AURA WITHOUT MENTION OF INTRACTABLE MIGRAINE WITHOUT MENTION OF STATUS MIGRAINOSUS 10/04/2012 MELANIE TERRELL LUCI R 346.10 MIGRAINE WITHOUT AURA WITHOUT MENTION OF INTRACTABLE MIGRAINE WITHOUT MENTION OF STATUS MIGRAINOSUS 10/04/2012 MAYRA ALANIZ APRNRICIA R 346.10 MIGRAINE WITHOUT AURA WITHOUT MENTION OF INTRACTABLE MIGRAINE WITHOUT MENTION OF STATUS MIGRAINOSUS 02/23/2013 782.0 DISTURBANCE OF SKIN SENSATION 02/23/2013 784.0 HEADACHE 02/23/2013 MISTI HAWLEY APRN S 782.0 DISTURBANCE OF SKIN SENSATION 02/23/2013 MISTI HAWLEY APRN S 784.0 HEADACHE 02/23/2013 ELSY HELLER MD 782.0 DISTURBANCE OF SKIN SENSATION 02/23/2013 ELSY HELLER MD 784.0 HEADACHE 02/23/2013 ANTONIO COWAN DO K 782.0 DISTURBANCE OF SKIN SENSATION 02/23/2013 COWAN DO, ANTONOI K 784.0 HEADACHE 02/23/2013 MELANIE LACQUER MAKER, LUCI R 782.0 DISTURBANCE OF SKIN SENSATION 02/23/2013 MELANIE LACQUER MAKER, LUCI R 784.0 HEADACHE 02/23/2013 KATTY LACQUER MAKER, RAY R 782.0 DISTURBANCE OF SKIN SENSATION 02/23/2013 KATTY TERRELL, RAY R 784.0 HEADACHE 06/22/2013 MILTON HAWLEY APRNA S 780.79 fatigue 06/22/2013 MILTON HAWLEY APRNA S 785.1 PALPITATIONS 06/22/2013 MILTON HAWLEY APRNA S 788.42 POLYURIA 06/22/2013 MILTON HAWLEY APRNA S 789.07 ABDOMINAL PAIN GENERALIZED 06/22/2013 MILTON HAWLEY APRNA S V18.0 FAMILY HISTORY OF DIABETES MELLITUS 06/22/2013 ELSY HELLER MD 780.79 fatigue 06/22/2013 ELSY HELLER MD 785.1 PALPITATIONS 06/22/2013 ELSY HELLER MD 788.42 POLYURIA 06/22/2013 ELSY HELLER MD 789.07 ABDOMINAL PAIN GENERALIZED 06/22/2013 ELSY HELLER MD V18.0 FAMILY HISTORY OF DIABETES MELLITUS 06/22/2013 COWAN DO ANTONIO K 780.79 fatigue 06/22/2013 COWAN DO, ANTONIO K 785.1 PALPITATIONS 06/22/2013 COWAN DO ANTONIO K 788.42 POLYURIA 06/22/2013 COWAN ANTONIO K 789.07 ABDOMINAL PAIN GENERALIZED 06/22/2013 CHAPO RENDON ANTONIO K V18.0 FAMILY HISTORY OF DIABETES MELLITUS 06/22/2013 MELANIE LACQUER MAKER, LUCI R 780.79 fatigue 06/22/2013 MELANIE LACQUER MAKER, LUCI R 785.1 PALPITATIONS 06/22/2013 MELANIE LACQUER MAKER, LUCI R 788.42 POLYURIA 06/22/2013 MELANIE LACQUER MAKER, LUCI R 789.07 ABDOMINAL PAIN GENERALIZED 06/22/2013 EMLANIE LACQUER MAKER, LUCI R V18.0 FAMILY HISTORY OF DIABETES MELLITUS 06/22/2013 MAYRA ALANIZ APRNRICIA R 780.79 fatigue 06/22/2013 MAYRA ALANIZ APRNRICIA R 785.1 PALPITATIONS 06/22/2013 MAYRA ALANIZ APRNRICIA R 788.42 POLYURIA 06/22/2013 MAYRA ALANIZ APRNRICIA R 789.07 ABDOMINAL PAIN GENERALIZED 06/22/2013 MAYRA ALANIZ APRNRICIA R V18.0 FAMILY HISTORY OF DIABETES MELLITUS 10/05/2013 PINA TORREZ, ELSY 008.8 GASTROENTERITIS, VIRAL 10/05/2013 COWAN DO ANTONIO K 008.8 GASTROENTERITIS, VIRAL 10/05/2013 MELANIE TERRELL LUCI R 008.8 GASTROENTERITIS, VIRAL 10/05/2013 MAYRA ALANIZ APRNRICIA R 008.8 GASTROENTERITIS, VIRAL 11/11/2013 COWAN DO ANTONIO K 627.9 UNSPECIFIED MENOPAUSAL AND POSTMENOPAUSAL DISORDER 11/11/2013 COWAN DO, ANTONIO K 780.52 INSOMNIA UNSPECIFIED 11/11/2013 MELANIE TERRELL LUCI R 627.9 UNSPECIFIED MENOPAUSAL AND POSTMENOPAUSAL DISORDER 11/11/2013 MELANIE TERRELL LUCI R 780.52 INSOMNIA UNSPECIFIED 11/11/2013 JASPAL ALANIZ APRNIA R 627.9 UNSPECIFIED MENOPAUSAL AND POSTMENOPAUSAL DISORDER 11/11/2013 JASPAL ALANIZ APRNIA R 780.52 INSOMNIA UNSPECIFIED 02/11/2014 MELANIE TERRELL LUCI R 787.01 NAUSEA WITH VOMITING 02/11/2014 MELANIE TERRELL LUCI R 787.91 DIARRHEA 02/11/2014 KATTY TERRELL RAY R 787.01 NAUSEA WITH VOMITING 02/11/2014 MAYRA ALANIZ APRNRICIA R 787.91 DIARRHEA 09/27/2014 MAYRA ALANIZ APRNRICIA R 077.99 UNSPECIFIED DISEASES OF CONJUNCTIVA DUE TO VIRUSES 07/19/2015 Ot 620.2 07/19/2015 Ot 625.9 07/19/2015 Ot 752.34 07/19/2015 Ot V76.12 07/19/2015 Ot 625.9 07/19/2015 Ot 752.34 07/19/2015 Ot 791.9 07/19/2015 Ot V72.63 07/19/2015 Ot V74.8 07/19/2015 Ot 593.89 07/19/2015 Ot 599.70 07/19/2015 MIKAEL TORREZ, LITO Vang Ot R21 RASH AND OTHER NONSPECIFIC SKIN ERUPTION 07/19/2015 MIKAEL TORREZ, LITO Vang Ot T78.40XA ALLERGY, UNSPECIFIED, INITIAL ENCOUNTER 07/19/2015 Ot 620.2 07/19/2015 Ot 625.9 07/19/2015 Ot 752.34 07/19/2015 Ot V76.12 07/19/2015 Ot 625.9 07/19/2015 Ot 752.34 07/19/2015 Ot 791.9 07/19/2015 Ot V72.63 07/19/2015 Ot V74.8 07/19/2015 Ot 593.89 07/19/2015 Ot 599.70 08/31/2015 ROBERTA CONTI DO Ot Z01.818 ENCOUNTER FOR OTHER PREPROCEDURAL EXAMIN 09/03/2015 ROBERTA CONTI DO Ot Z01.818 09/04/2015 ROBERTA CONTI DO Ot K63.5 POLYP OF COLON 09/04/2015 ROBERTA CONTI DO Ot Z12.11 ENCOUNTER FOR SCREENING FOR MALIGNANT NE 09/04/2015 ROBERTA CONTI DO Ot Z80.0 FAMILY HISTORY OF MALIGNANT NEOPLASM OF 09/05/2015 ROBERTA CONTI DO Ot K63.5 09/05/2015 ROBERTA CONTI DO Ot Z12.11 09/05/2015 ROBERTA CONTI DO Ot Z80.0 Procedures Code [place] [address] GLUCOSE FINGER STICK 06/22/2013 24884 UA LONG DIP 06/22/2013 86364 URINE DRUG SCREEN (IN-HOUSE ) 06/22/2013 Results There is no data. Encounters ACCT No. Visit Date/Time Discharge Status Pt. Type Provider Facility Loc./Unit Complaint [id number] 09/27/2014 14:47:00 09/27/2014 23:59:59 CLS Outpatient RAY ALANIZ APRN [id number] 02/11/2014 14:02:00 02/11/2014 23:59:59 CLS Outpatient LUCI NAVARRO APRN [id number] 11/11/2013 11:19:00 11/11/2013 23:59:59 CLS Outpatient ANTONIO COWAN DO [id number] 10/05/2013 18:05:00 10/05/2013 23:59:59 CLS Outpatient ELSY HELLER MD [id number] 06/22/2013 17:35:00 06/22/2013 23:59:59 CLS Outpatient MISTI HAWLEY APRN [id number] 02/23/2013 10:25:00 Document Registration [id number] 10/04/2012 16:36:00 Document Registration [id number] 02/18/2018 10:47:00 02/18/2018 23:59:59 CLS Outpatient KADEEM TORREZ, ELISA Luevano [facility] RAD ANKLE SPRAIN [id number] 09/04/2015 12:40:00 09/04/2015 15:40:00 DIS Outpatient ROBERTA CONTI DO [facility] SCREENING,FAMILY HX COLON CANCER [id number] 08/31/2015 05:41:00 08/31/2015 15:58:00 DIS Outpatient ROBERTA CONTI DO [facility] PREOP FAMILY HISTORY COLON CANCER [id number] 07/19/2015 10:35:00 07/19/2015 12:28:00 DIS Emergency MIKAEL TORREZ, LITO Vang [facility] ER POSS ALLERGIC REACTION [id number] 04/05/2012 08:43:00 Document Registration [id number] 01/14/2011 05:49:00 Document Registration [id number] 01/09/2011 09:12:00 Document Registration [id number] 12/18/2010 12:43:00 Document Registration [id number] 11/18/2017 14:00:00 11/18/2017 23:59:59 CLS [facility]
--- OUTSIDE RECORDS SUMMARY | 2018-03-15 11:26 | XMS REPORT ---
Author Author RAY ALANIZ [facility] eClinicalWorks Address Unknown Phone Unavailable Care Team Providers Care Cattle Killer Name Role Phone RAY ALANIZ CP Unavailable Allergies No Known Allergies Problems Problem Type Condition ICD-9 Code Onset Dates Condition Status Problem Nausea alone 787.02 Active Problem Abdominal pain, unspecified site 789.00 Active Problem Hematuria, unspecified 599.70 Active Problem Polyuria 788.42 Active Problem Palpitations 785.1 Active Problem Family history of diabetes mellitus V18.0 Active Problem Disturbance of skin sensation 782.0 Active Problem Headache 784.0 Active Problem Other malaise and fatigue 780.79 Active Problem Abdominal pain, generalized 789.07 Active Problem Insomnia, unspecified 780.52 Active Problem Unspecified menopausal and postmenopausal disorder 627.9 Active Problem Sprain and strain of tibiofibular (ligament) 845.03 Active Problem Intestinal infection due to other organism, NEC 008.8 Active Problem Diarrhea 787.91 Active Problem Migraine without aura, without mention of intractable migraine without mention of status migrainosus 346.10 Active Problem Nausea with vomiting 787.01 Active Problem Carpal tunnel syndrome 354.0 Active Medications No Known Medications Results No Known Results Summary Purpose eClinicalWorks Submission
--- OUTSIDE RECORDS SUMMARY | 2018-03-15 11:26 | XMS REPORT ---
Author Author BARRETT CRAVEN [facility] Address Unknown Care Team Providers Care [employer] Name Role Phone BARRETT CRAVEN Unavailable PROBLEMS Type Condition ICD9-CM Code [id number] Code Onset Dates Condition Status SNOMED Code Problem Depression with anxiety F41.8 Active 376881415 Problem Abdominal pain, generalized 789.07 Active 499182139 ALLERGIES Substance Reaction Event Type Date Status Bactrim DS anaphylaxis Drug Allergy October, Active SOCIAL HISTORY Never Assessed PLAN OF CARE Activity Details Follow Up prn Reason:PROPHY VITAL SIGNS Height 66 in 2016-10-21 Blood pressure systolic 127 mmHg 2016-10-21 Blood pressure diastolic 76 mmHg 2016-10-21 MEDICATIONS No Known Medications RESULTS No Results PROCEDURES Procedure Date Ordered Result Body Site LTD ORAL EVALUATION - PROBLEM FOCUS October 21, 2016 INTRAORL-PERIAPICAL 1 FILM [id number] October 21, 2016 IMMUNIZATIONS No Known Immunizations MEDICAL (GENERAL) HISTORY Type Description Date Surgical History hysterectomy 01/2011 Surgical History tubal ligation 1999 Hospitalization History Surgery(s) only
[2018-03-15 12:50] VITALS: BP 135/79
== END 2018-03-15 12:50 | disposition home or self-care (01) ==
LOC: EDUNIT# 10:30 → ER 10:31
DX: M54.16 Radiculopathy, lumbar region (principal); Z88.2 Allergy status to sulfonamides
CPT/HCPCS: 99284

== ENCOUNTER → 2018-03-19 | Outpatient (CLI) | payer BC ==
[~2018-03-19] MED LIST changes: +METH-313 PO; +PRD20T PO
--- NOTE | 2018-03-19 17:24 | Diagnostic Imaging Report ---
PROCEDURE: MRI lumbar spine. TECHNIQUE: Multiplanar, multisequence MRI of the lumbar spine was performed without contrast. INDICATION: Severe back pain radiating down left leg. COMPARISON: None available. FINDINGS: Lumbar spine has mild straightening. No spondylolisthesis. No fracture or marrow-replacing process. There is small amount of discogenic endplate edema at T11-T12. No active facet synovitis. No sacral insufficiency fracture. The conus terminus at appropriate level. No abnormal clumping of the intrathecal nerve roots. Visualized aspects of the retroperitoneum are unremarkable. Paravertebral musculature is normal. From T12-L1 through L3-L4, there is no disc bulge or herniation. No spinal stenosis, lateral recess or neuroforaminal narrowing. L4-L5: Minimal disc bulge with left foraminal posterior annular tear. No spinal stenosis, lateral recess or neuroforaminal narrowing. L5-S1: There is a left foraminal disc protrusion which contacts and likely compresses the exiting L5 nerve root. There is also mild narrowing of the lateral recess without mass effect on the transversing S1 nerve root. No spinal stenosis. IMPRESSION: 1. Left foraminal disc protrusion at L5-S1 causes severe foraminal narrowing and compression on the exiting left L5 nerve root. 2. No additional significant degenerative changes or acute abnormality are identified. Dictated by: Dictated on workstation # [id number]
== END ==
LOC: RAD 16:00
PROVIDERS: ATTEND Nurse Practitioner
DX: M51.17 Intervertebral disc disorders with radiculopathy, lumbosacral region (principal); M99.73 Connective tissue and disc stenosis of intervertebral foramina of lumbar region
CPT/HCPCS: 72148

== ENCOUNTER → 2022-01-03 | Outpatient (CLI) | payer BC ==
--- NOTE | 2022-01-03 15:17 | Diagnostic Imaging Report ---
Clinical Indication: Patient with chronic back pain. Exam: MRI of the lumbar spine performed without IV contrast. Sagittal T2, sagittal T1, sagittal T2 fat-sat, axial T1, and axial T2. Comparison: MRI of the lumbar spine without contrast dated 03/19/2018. Findings: There is interval development of a roughly 30% compression fracture deformity with increased T2 signal and low T1 signal likely representing acute or subacute fracture. There is no retropulsed component. There is no other lumbar spine fracture. There are degenerative spurs involving the lumbar spine. The visualized portions of the distal thoracic spinal cord, conus medullaris, and cauda equina nerve roots are unremarkable. The conus medullaris tip is seen at the lower L1 vertebral body level. There is no significant paraspinal soft tissue abnormality. T12-L1, L1-L2, and L2-L3: Unremarkable. L3-L4: There is interval progression of a diffuse disk bulge with disk herniation components extending to the foraminal regions bilaterally. There is mild right neural foramen narrowing and moderate left neural foramen narrowing which has progressed. There is no significant central canal stenosis. L4-L5: Stable annular tear involving the left subarticular aspect of the disk with subtle disk bulging seen posteriorly and into the foraminal regions. There is no significant central canal narrowing. There is mild bilateral neural foraminal narrowing which is slightly progressed on the right stable on the left. L5-S1: There is residual progression of a diffuse disk bulge, moderate loss of disk space height and disk spurs extending posteriorly and into the foraminal regions bilaterally. There is severe left neural foramen narrowing which is slightly improved due to decrease disk herniation in the left subarticular region. There is no significant right neural foramen narrowing. There is no significant central canal stenosis. IMPRESSION: 1: There is interval development of a mild acute or subacute compression fracture deformity involving the upper aspect of the L4 vertebra. 2: There is progression of lumbar spine degenerative disk disease which is described in detail above. Report faxed to ROSELIA Schwartz at 3:15 PM 01/03/2022/cb Dictated by: Dictated on workstation # [id number]
== END ==
LOC: RAD 14:00
PROVIDERS: ATTEND Physician Assistant
DX: M51.26 Other intervertebral disc displacement, lumbar region (principal); M43.8X6 Other specified deforming dorsopathies, lumbar region; M51.36 Other intervertebral disc degeneration, lumbar region
CPT/HCPCS: 72148